=== PATIENT | male | born 1995 | race Caucasian/White ===

== ENCOUNTER 2017-07-03 16:32 | Emergency (ER) | payer SELFPAY ==
[~2017-07-03] VITALS: Ht 167.6 cm; Wt 65.0 kg
[2017-07-03] MEDS ORDERED: ACETAMINOPHEN 325 MG TABLET PO ONE (17:30)
[2017-07-03 18:55] VITALS: BP 132/60
== END 2017-07-03 18:59 | disposition home or self-care (01) ==
LOC: EMS 16:34
DX: S40.212A Abrasion of left shoulder, initial encounter (principal); V43.52XA Car driver injured in collision with other type car in traffic accident, initial encounter; Y93.55 Activity, bike riding; Y93.89 Activity, other specified; Y99.8 Other external cause status
CPT/HCPCS: 99284

== ENCOUNTER 2024-04-20 17:07 | Emergency (ER) | payer OTHER ==
[~2024-04-20] VITALS: Ht 167.6 cm; Wt 72.7 kg
[2024-04-20 17:07] VITALS: BP 128/68; PULSE 72; RESP 20; TEMP 98.1; O2SAT 99
[2024-04-20] MEDS: LIDOCAINE 1% 10 ML VIAL ID ONE (20:11)
[2024-04-20] MEDS: PERTUSS(ACELL),DIPH,TET/PF 0.5 ML SYRINGE [ADULT] IM. ONE (20:12)
== END 2024-04-20 21:50 | disposition home or self-care (01) ==
LOC: EMS 17:07
DX: S61.412A Laceration without foreign body of left hand, initial encounter (principal); Z23 Encounter for immunization; W29.8XXA Contact with other powered hand tools and household machinery, initial encounter; Y93.89 Activity, other specified; Y92.89 Other specified places as the place of occurrence of the external cause; Y99.0 Civilian activity done for income or pay
CPT/HCPCS: 99283; 90715; 90471; 12001; J3490